=== PATIENT | male | born 1970 ===

== ENCOUNTER 2019-07-21 16:29 | Observation (INO) | payer OTHER ==
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
[2019-07-21] MEDS ORDERED: methylPREDNISolone Sodium Succinate 125 MG/2 ML SDV IVPUSH ONE (16:58)
[2019-07-21] MEDS ORDERED: Albuterol/Ipratropium 3.0-0.5 MG/3 ML Neb Soln NEB ONE (16:58)
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
[2019-07-21 17:18] LABS: BLOOD UREA NITROGEN,BUN 15 mg/dL (7.0-18.0); CARBON DIOXIDE,CO2 23.1 mmol/L (21.0-32.0); CHLORIDE,CL 104 mmol/L (98-107); GLUCOSE RANDOM 124 mg/dL (74-106); POTASSIUM,K 3.7 mmol/L (3.5-5.1); SODIUM,NA 140 mmol/L (136-148)
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
[2019-07-21] MEDS ORDERED: Sodium Chloride 0.9% 1,000 ML IV SCH (18:15)
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
[2019-07-21] MEDS ORDERED: Ondansetron 4 MG Tab.DIS PO PRN (19:15)
[2019-07-21] MEDS ORDERED: Ondansetron 4 MG/2 ML SDV IVPUSH PRN (19:15)
[2019-07-21] MEDS ORDERED: Sodium Chloride 0.9% 1,000 ML IV ONE (19:18)
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
[2019-07-21] MEDS ORDERED: methylPREDNISolone Sodium Succinate 1,000 MG/8 ML SDV IV SCH (19:30)
[2019-07-21] MEDS ORDERED: methylPREDNISolone Acetate 40 MG/ML SDV INJECT SCH (19:31)
[2019-07-21] MEDS: Heparin Sodium 5,000 Units/ML Vial SUBCUT SCH (20:29)
[2019-07-21] MEDS: methylPREDNISolone Sodium Succinate 1,000 MG/8 ML SDV IV SCH (22:11)
[2019-07-21] MEDS: Sodium Chloride 0.9% 1,000 ML IV SCH (22:15)
[2019-07-21] MEDS: Morphine 10 MG/ML Syringe IVPUSH PRN (22:24)
[2019-07-21] MEDS: Acetaminophen 325 MG Tab PO PRN (22:26)
[2019-07-22] MEDS: Heparin Sodium 5,000 Units/ML Vial SUBCUT SCH ×2 (03:42→10:45)
[2019-07-22] MEDS ORDERED: methylPREDNISolone Sodium Succinate 40 MG/1 ML SDV IV SCH (04:00)
[2019-07-22] MEDS: Acetaminophen 325 MG Tab PO PRN ×2 (04:01→09:34)
[2019-07-22] MEDS: Morphine 10 MG/ML Syringe IVPUSH PRN (04:02)
[2019-07-22] MEDS: methylPREDNISolone Sodium Succinate 1,000 MG/8 ML SDV IV SCH (04:09)
[2019-07-22] MEDS: Sodium Chloride 0.9% 1,000 ML IV SCH (04:14)
[2019-07-22] MEDS: methylPREDNISolone Sodium Succinate 40 MG/1 ML SDV IVPUSH SCH ×2 (04:17→11:08)
[2019-07-22 05:51] LABS: CARBON DIOXIDE,CO2 23.4 mmol/L (21.0-32.0); POTASSIUM,K 4.1 mmol/L (3.5-5.1)
[2019-07-22] MEDS ORDERED: Morphine 2 MG/ML Syringe IVPUSH PRN (07:45)
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
[2019-07-22] MEDS ORDERED: Pantoprazole 40 MG Tab.CR PO SCH (09:00)
[2019-07-22] MEDS ORDERED: Sodium Chloride 0.9% 1,000 ML IV ONE (10:03)
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
== END 2019-07-22 14:00 | disposition home or self-care (01) ==
LOC: MW.ED 16:29 → MW.MS 18:51
PROVIDERS: ADMIT Student in an Organized Health Care Education/Training Program; ATTEND Student in an Organized Health Care Education/Training Program
DX: T59.91XA Toxic effect of unspecified gases, fumes and vapors, accidental (unintentional), initial encounter (principal); J68.8 Other respiratory conditions due to chemicals, gases, fumes and vapors; R09.02 Hypoxemia; J40 Bronchitis, not specified as acute or chronic; N17.9 Acute kidney failure, unspecified; F43.10 Post-traumatic stress disorder, unspecified; M62.82 Rhabdomyolysis; V69.9XXA Occupant (driver) (passenger) of heavy transport vehicle injured in unspecified traffic accident, initial encounter
CPT/HCPCS: 36415; 70450; 71045; 71260; 72125; 72170; 74177; 80053; 81001; 82550; 84484; 85025; 85610; 93005; 96361; 96374; 99285; A9270; J1644; J2270; J2920; J2930; J7030; 96372; 96375; 96376; G0378; J7620-GY